=== PATIENT | female | born 1985 | race Caucasian/White ===

== ENCOUNTER 2022-11-29 08:30 | Day surgery (SDC) | payer BC ==
[2022-11-29 09:09] VITALS: BMI 31.6
[2022-11-29 10:39] LABS: #Basophils 0.1 10x3/uL (0.0-0.2); #Eosinphils 0.1 10x3/uL (0.0-0.5); #Monocytes 1.1 10x3/uL (0.0-1.1); #Neutrophils 8.3 10x3/uL (1.5-8.4); %Basophils 0.4 % (0.0-2.0); %Eosinophils 1.1 % (0.0-6.0); %Lymphocytes 18.2 % (18.0-47.0); %Monocytes 9.3 % (0.0-10.0); %Neutrophils 69.7 % (40.0-75.0); Hematocrit 38.5 % (34.9-44.5); Hemoglobin 13.2 g/dL (12.0-15.5); Mean Corpuscular HGB CONC 34.3 g/dL (32.0-36.0); Mean Corpuscular Hemoglobin 31.1 pg (27.0-33.0); Mean Corpuscular Volume 90.6 fl (81.6-98.3); Mean Platelet Volume 12.7 fl (7.4-10.4); Platelet Count 175 10x3/uL (150-450); RBC Distribution Width 13.4 % (11.5-14.5); Red Blood Cell (RBC) Count 4.25 10x6/uL (3.90-5.03); White Blood Cell (WBC) Count 11.9 10x3/uL (3.5-10.5)
[2022-11-29 11:01] LABS: ALT (SGPT) 26 U/L (8-55); AST (SGOT) 31 U/L (5-34); Albumin 3.2 g/dL (3.5-5.0); Alkaline Phosphatase 153 U/L (40-110); Anion Gap 12 mmol/L (10-20); BUN (Urea Nitrogen) 8 mg/dL (7.0-18.7); Bilirubin, Total 0.2 mg/dL (0.2-1.2); Calc. Creatinine Clearance 157 mL/min (70-130); Calcium 9.1 mg/dL (7.8-10.44); Carbon Dioxide 21 mmol/L (22-29); Chloride 107 mmol/L (98-107); Estimated GFR 107; Globulin 3.2 g/dL (2.4-3.5); Glucose 70 mg/dL (70-105); Potassium 4.3 mmol/L (3.5-5.1); Protein, Total 6.4 g/dL (6.0-8.3); Sodium 136 mmol/L (136-145)
== END 2022-11-29 11:10 | disposition home or self-care (01) ==
LOC: CSHERS 08:30 → CSHLD/OP 08:52
PROVIDERS: ATTEND Obstetrics & Gynecology
DX: O16.3 Unspecified maternal hypertension, third trimester (principal); Z3A.35 35 weeks gestation of pregnancy; Z88.1 Allergy status to other antibiotic agents
CPT/HCPCS: 36415; 80053; 82570; 84156; 85025; 93005; 93010

== ENCOUNTER 2022-12-19 22:46 | Inpatient (IN) | payer BC ==
[2022-12-19 23:01] VITALS: BMI 32.2
[2022-12-20] MEDS ORDERED: Lactated Ringer's 1,000 ML IV SCH (01:30)
[2022-12-20] MEDS ORDERED: Ondansetron PF 4 MG/2 ML Vial IVP PRN ×2 (01:30→02:50)
[2022-12-20] MEDS ORDERED: Promethazine HCl 25 MG/ML VIAL IM PRN ×2 (01:30→02:50)
[2022-12-20] MEDS ORDERED: hydrALAZINE 20 MG/ML VIAL SLOW IVP PRN ×2 (01:30→13:48)
[2022-12-20] MEDS ORDERED: fentaNYL/Ropivacaine Epidural 100 ML ONE (01:35)
[2022-12-20] MEDS ORDERED: HYDROcodone/Acetaminophen 5/325 mg Tablet PO PRN (01:45)
[2022-12-20] MEDS ORDERED: Ibuprofen 800 MG TAB PO PRN (01:45)
[2022-12-20] MEDS ORDERED: Carboprost 250 MCG/ML AMP IM PRN (01:45)
[2022-12-20] MEDS ORDERED: Methylergonovine 0.2 MG/ML VIAL IM PRN (01:45)
[2022-12-20] MEDS ORDERED: Diphenoxylate HCl/Atropine Tablet PO PRN ×2 (01:45)
[2022-12-20] MEDS ORDERED: Lidocaine 1% (PF) 30 ML VIAL SC PRN (01:45)
[2022-12-20] MEDS ORDERED: Misoprostol 200 MCG TAB RC PRN (01:45)
[2022-12-20] MEDS ORDERED: Oxytocin 30 units/NS 500 ML 500 ML IV SCH (01:45)
[2022-12-20] MEDS ORDERED: Oxytocin 30 units/NS 500 ML 500 ML IVPB SCH (01:45)
[2022-12-20 02:12] LABS: Hematocrit 39.3 % (34.9-44.5); Hemoglobin 13.5 g/dL (12.0-15.5); Mean Corpuscular HGB CONC 34.4 g/dL (32.0-36.0); Mean Corpuscular Hemoglobin 30.7 pg (27.0-33.0); Mean Corpuscular Volume 89.3 fl (81.6-98.3); Mean Platelet Volume 12.8 fl (7.4-10.4); Platelet Count 186 10x3/uL (150-450); RBC Distribution Width 13.7 % (11.5-14.5); White Blood Cell (WBC) Count 16.9 10x3/uL (3.5-10.5)
[2022-12-20 02:33] LABS: Syphilis Antibody Nonreactive (Nonreactive); Syphilis Antibody Index 0.02 S/CO (<1.00 Non-Reactive)
[2022-12-20 02:34] LABS: HBSAg Index 0.14 S/CO (0-0.99); Hep B Surf Ag - L&D Non-Reactive S/CO (NonReactive)
[2022-12-20] MEDS ORDERED: diphenhydrAMINE 50 MG/ML VIAL IVP PRN (02:50)
[2022-12-20] MEDS ORDERED: Acetaminophen 325 MG TAB PO PRN (02:50)
[2022-12-20] MEDS ORDERED: Lactated Ringer's 500 ML IV PRN (02:50)
[2022-12-20] MEDS ORDERED: ePHEDrine Sulfate 50 MG/10 ML VIAL SLOW IVP PRN (02:50)
[2022-12-20] MEDS ORDERED: Moisturizing Cream (Eucerin) 113 GM JAR TOP PRN (02:50)
[2022-12-20] MEDS ORDERED: Naloxone HCl 0.4 mg/ml Vial IVP PRN ×2 (02:50)
[2022-12-20] MEDS ORDERED: Communication Order-Pharmacy FS SCH (03:00)
[2022-12-20] MEDS ORDERED: fentaNYL 2 mcg/Ropivacaine 0.2% Epidural 100 ML CADD EPIDURAL SCH (03:00)
[2022-12-20] MEDS ORDERED: Famotidine/PF 20 mg/2ml Vial SLOW IVP PRN (08:27)
[2022-12-20] MEDS ORDERED: Calcium Carbonate 500 MG ChewTAB PO SCH (10:00)
[2022-12-20] MEDS ORDERED: Boostrix 0.5 ML (Tdap) VIAL (>/=7 yrs of age) IM ONE (13:48)
[2022-12-20] MEDS ORDERED: diphenhydrAMINE 25 MG CAP PO PRN (13:48)
[2022-12-20] MEDS ORDERED: Milk Of Magnesia 30 ML UDCUP PO PRN (13:48)
[2022-12-20] MEDS ORDERED: Lanolin Ointment 7 GM TUBE TOP PRN (13:48)
[2022-12-20] MEDS ORDERED: Benzocaine-Menthol 82.5 ML CAN TOP PRN (13:48)
[2022-12-20] MEDS ORDERED: Preparation H Ointment 28 GM TUBE PR PRN (13:48)
[2022-12-20] MEDS ORDERED: Bisacodyl 10 MG SUPP PR PRN (13:48)
[2022-12-20] MEDS: Ferrous Sulfate 325 MG TAB PO SCH (16:51)
[2022-12-20] MEDS ORDERED: Ibuprofen 800 MG TAB PO SCH (17:30)
[2022-12-20] MEDS ORDERED: traMADol HCl 50 MG TAB PO PRN (21:13)
[2022-12-20] MEDS ORDERED: traMADol HCl 50 MG TAB ONE (21:33)
[2022-12-20] MEDS: Docusate 100 MG CAP PO SCH (21:36)
[2022-12-21] MEDS: Ibuprofen 800 MG TAB PO SCH ×2 (05:25→14:02)
[2022-12-21] MEDS: Docusate 100 MG CAP PO SCH (09:00)
[2022-12-21] MEDS ORDERED: Prenatal Vitamin 1 TAB PO SCH (09:00)
[2022-12-21 11:23] VITALS: BP 121/73; TEMP 98.4
[2022-12-21] MEDS: Ferrous Sulfate 325 MG TAB PO SCH (14:00)
[2022-12-22] MEDS ORDERED: traMADol HCl 50 MG TAB PO PRN (13:48)
== END 2022-12-21 17:05 | disposition home or self-care (01) | DRG 807 ==
LOC: CSHLD/OP 22:46 → CSHLD 12-20 01:05 → CSHPP 12-20 14:45
PROVIDERS: ADMIT Obstetrics & Gynecology; ATTEND Obstetrics & Gynecology
PROC: 10E0XZZ Delivery of Products of Conception, External Approach (ICD-10-PCS; principal; 2022-12-20)
PROC: 0KQM0ZZ Repair Perineum Muscle, Open Approach (ICD-10-PCS; 2022-12-20)
PROC: 3E033XZ Introduction of Vasopressor into Peripheral Vein, Percutaneous Approach (ICD-10-PCS; 2022-12-20)
DX: O98.52 Other viral diseases complicating childbirth (principal); Z37.0 Single live birth; A60.00 Herpesviral infection of urogenital system, unspecified; O70.1 Second degree perineal laceration during delivery; Z3A.38 38 weeks gestation of pregnancy; O09.513 Supervision of elderly primigravida, third trimester
CPT/HCPCS: 36415; 51702; 85027; 86780; 86850; 86900; 86901; 87340; 99285; J2405; J2550; J2590; S0028